=== PATIENT | male | born 1950 | race Caucasian/White ===

== ENCOUNTER 2017-03-07 07:33 | Outpatient (CLI) | payer BC ==
--- NOTE | 2017-03-07 09:16 | CT ---
CT PULMONARY LUNG SCAN NONCONTRAST: Date: 03/07/17 HISTORY: Lung cancer screening. Tobacco abuse in history. FINDINGS: No focal parenchymal lung mass, infiltrate, or consolidation are apparent. There is no evidence of pl eural fluid or pneumothorax. Lack of contrast limits evaluation of the mediastinum. There is no bulky adenopathy visible. Calcific ations apparent within the coronary arteries. IMPRESSION: 1. Lung-RADS Category 1 - negative. Suggest routine screening. 2. Atherosclerosis. POS: [facility]
== END 2017-03-07 07:34 | disposition home or self-care (01) ==
LOC: CT 07:33
PROVIDERS: ATTEND Internal Medicine
DX: Z12.2 Encounter for screening for malignant neoplasm of respiratory organs (principal); I70.90 Unspecified atherosclerosis; Z87.891 Personal history of nicotine dependence
CPT/HCPCS: G0297

== ENCOUNTER 2017-07-15 15:08 | Emergency (ER) | payer OTHER ==
--- NOTE | 2017-07-15 16:48 | RAD ---
FOUR VIEWS RIGHT KNEE 07/15/17 HISTORY: Right knee pain and swelling. FINDINGS: There is minimal tricompartment osteophytosis. There are calcifications seen adjacent to the medial femoral condyle which may be related to prior in jury. There is no significant joint space narrowing present. No fracture or dislocation is identified . IMPRESSION: 1. No acute osseous abnormality right knee. 2. Findings likely related to prior injury medial aspect right knee. 3. Minimal osteoarthritis. POS: [facility]
== END 2017-07-15 16:55 | disposition home or self-care (01) ==
LOC: ERS 15:08
DX: S83.521A Sprain of posterior cruciate ligament of right knee, initial encounter (principal); E78.5 Hyperlipidemia, unspecified; I10 Essential (primary) hypertension; F32.9 Major depressive disorder, single episode, unspecified; Z87.891 Personal history of nicotine dependence; X50.9XXA Other and unspecified overexertion or strenuous movements or postures, initial encounter

== ENCOUNTER 2017-11-18 07:22 | Outpatient (CLI) | payer OTHER ==
--- NOTE | 2017-11-18 09:11 | ULT ---
RIGHT UPPER QUADRANT ULTRASOUND: Date: 11/18/17 HISTORY: Abnormal liver function tests. FINDINGS: The left lobe of the liver is not satisfactorily visualized due to bowel gas. The right lobe of the l iver demonstrates homogeneous echotexture without focal mass or intrahepatic ductal dilatation. No ga llstones, gallbladder wall thickening, or pericholecystic fluid is seen. The common duct measures 2.0 mm in diameter. There is a 2.2 cm cyst in the right kidney without hydronephrosis. The visualized po rtions of the pancreas are unremarkable. No free fluid is seen in Morison's pouch. IMPRESSION: 1. No evidence of cholelithiasis. 2. Right renal cyst. POS: [facility]
== END 2017-11-18 07:23 | disposition home or self-care (01) ==
LOC: ULT 07:22
PROVIDERS: ATTEND Internal Medicine
DX: E80.6 Other disorders of bilirubin metabolism (principal); N28.1 Cyst of kidney, acquired
CPT/HCPCS: 76705

== ENCOUNTER 2018-03-09 13:22 | Outpatient (CLI) | payer OTHER ==
--- NOTE | 2018-03-09 15:41 | CT ---
CT CHEST WITHOUT CONTRAST PULMONARY LUNG SCAN: Date: 03/09/18 HISTORY: Personal history of tobacco use. COMPARISON: CT 03/07/17. FINDINGS: Lung Screen Specifics (Lung-RADS): Unchanged 3.0 mm peribronchovascular nodule right lung base, axia l image 211 of series 2. No new suspicious pulmonary nodule. Essentially Significant Incidentals (Lung-RADS Category S): Negative. Pulmonary/Other Incidentals: No mediastinal adenopathy. No pericardial effusion. Limited evaluation of the upper abdomen is unremarkable. Sternum and manubrium are normal. No acute displaced rib fracture. IMPRESSION: 1. Lung-RADS 2: Benign appearance or behavior. Recommend follow-up CT of the chest screening in 1 y ear. 2. Lung-RADS Category S: Negative. No new or urgent findings requiring additional evaluation. POS: [facility]
== END 2018-03-09 13:23 | disposition home or self-care (01) ==
LOC: CT 13:22
PROVIDERS: ATTEND Internal Medicine
DX: Z87.891 Personal history of nicotine dependence (principal)
CPT/HCPCS: G0297

== ENCOUNTER 2018-11-21 09:18 | Outpatient (CLI) | payer MEDICARE ==
[2018-11-21 10:10] LABS: Estimated GFR-MDRD - POC Greater than 90
--- NOTE | 2018-11-21 15:49 | MRI ---
MRI OF THE PROSTATE WITHOUT AND WITH CONTRAST: 11/21/18 COMPARISON: None. HISTORY: Prostate cancer. TECHNIQUE: Multiplanar and multisequence MR images were obtained in the prostate without and with IV contrast. T his exam was evaluated on the [employer] workstation. FINDINGS: There is moderate hypertrophy of the central gland consistent with BPH. A small amount of T1 signal i s seen in the peripheral gland from recent biopsy. No restricted diffusion is seen and no low signal is seen in the ADC map in the peripheral zone of the prostate, but evaluation is limited secondary to artifact from air in the rectum. In the left aspect of the central zone of the prostate, near the base, there is a gumball shaped lesi on which demonstrates low T2 signal. This measures 1.7 cm in greatest dimension. On the postcontrast images, this demonstrates gradual enhancement without significant washout. The prostate capsule appea rs intact. The seminal vesicles appear intact. The neurovascular bundles appear intact. No pelvic adenopathy was seen. No marrow signal abnormality is present. IMPRESSION: There is a lesion in the peripheral zone of the prostate that is suspicious. PI-RADS category 5 - jose y high likelihood that a clinically significant cancer is present in this location. POS: [facility]
[2018-11-21] MEDS ORDERED: Gadobenate Dimeglumine 529 MG/1 ML (20ML VIAL) ONE (15:59)
== END 2018-11-21 09:19 | disposition home or self-care (01) ==
LOC: TBSIIMAG 09:18
PROVIDERS: ATTEND Urology
DX: C61 Malignant neoplasm of prostate (principal); N42.89 Other specified disorders of prostate
CPT/HCPCS: 72197; 82565; A9577

== ENCOUNTER 2018-12-12 07:15 | Outpatient (CLI) | payer MEDICARE, OTHER ==
--- NOTE | 2018-12-12 07:50 | ULT ---
Abdominal aortic ultrasound: 12/12/2018 COMPARISON: None HISTORY: Screening examination for abdominal aortic aneurysm TECHNIQUE: Multiplanar grayscale sonographic imaging of the abdominal aorta obtained. Imaging include s color flow and spectral analysis FINDINGS: As defined by transverse dimension of greater than or equal to 3 cm, no evidence for aneury smal dilatation is seen involving the abdominal aorta. Abdominal aorta measures up to 2.8 x 2.3 cm proximally, 2.0 x 2.0 cm in the midportion, and 1.8 x 1.8 cm distally. Bilateral common iliac arterie s are patent. IMPRESSION: No sonographic evidence of aneurysmal dilatation of the abdominal aorta.
== END 2018-12-12 07:16 | disposition home or self-care (01) ==
LOC: BICULT 07:15
PROVIDERS: ATTEND Internal Medicine
DX: Z13.6 Encounter for screening for cardiovascular disorders (principal)
CPT/HCPCS: 76775

== ENCOUNTER 2018-12-14 14:33 | Outpatient (CLI) | payer MEDICARE ==
[2018-12-14 14:59] VITALS: BMI 28.3
[2018-12-14 15:30] LABS: Hemoglobin 15.4 g/dL (14.0-18.0); Mean Corpuscular HGB CONC 33.7 g/dL (32.0-36.0); Mean Corpuscular Volume 92.1 fL (78.0-98.0); Mean Platelet Volume 7.3 fL (7.4-10.4); Platelet Count 186 thou/uL (130-400); Red Blood Cell (RBC) Count 4.95 mill/uL (4.70-6.10); White Blood Cell (WBC) Count 6.1 thou/uL (4.8-10.8)
[2018-12-14 15:31] LABS: Bacteria/HPF None Seen HPF (None Seen); Bilirubin Negative (Negative); Blood, Urine Negative (Negative); Clarity Clear (Clear); Glucose, Urine (Dipstick) Normal (Negative); Leukocyte Negative Leu/uL (Negative); Nitrite Negative (Negative); Protein, Urine (Dipstick) 20 mg/dL (Neg-Trace); RBC/HPF 0-3 HPF (0-3); Squamous Epithelial 0-3 HPF (0-3); WBC/HPF 0-3 HPF (0-3)
[2018-12-14 15:36] LABS: INR-International Normal Ratio 1.1; PTT 29.6 SEC (22.9-36.1); Prothrombin Time 13.9 SEC (12.0-14.7)
[2018-12-14 15:48] LABS: Anion Gap 12 mmol/L (10-20); BUN (Urea Nitrogen) 15 mg/dL (8.4-25.7); Calc. Creatinine Clearance 102 mL/min (70-130); Calcium 9.3 mg/dL (7.8-10.44); Carbon Dioxide 27 mmol/L (23-31); Chloride 102 mmol/L (98-107); Estimated GFR-MDRD 77; Glucose 100 mg/dL (80-115); Potassium 3.8 mmol/L (3.5-5.1); Sodium 137 mmol/L (136-145)
== END 2018-12-14 14:34 | disposition home or self-care (01) ==
LOC: LABBT 14:33
PROVIDERS: ATTEND Urology
DX: Z01.818 Encounter for other preprocedural examination (principal); C61 Malignant neoplasm of prostate; N50.82 Scrotal pain; N40.1 Benign prostatic hyperplasia with lower urinary tract symptoms; E29.1 Testicular hypofunction
CPT/HCPCS: 80048; 81001; 85027; 85610; 85730; 87086; 93005; 93010

== ENCOUNTER 2018-12-21 08:18 | Day surgery (SDC) | payer MEDICARE ==
[2018-12-21] MEDS ORDERED: cefTRIAXone\\ROCEPHIN 1 GM VIAL ONE (10:13)
[2018-12-21] MEDS ORDERED: Sodium Chloride 0.9% 100 ML ONE (10:14)
[2018-12-21] MEDS ORDERED: PROPOFOL 200 MG/20 ML VIAL ONE (10:17)
[2018-12-21] MEDS ORDERED: Propofol 500 MG/50 ML VIAL ONE (12:15)
[2018-12-21] MEDS ORDERED: Midazolam HCl 2 mg/2 ml Vial ONE (12:15)
[2018-12-21] MEDS ORDERED: Fentanyl 100 MCG/2 ML VIAL ONE (12:15)
[2018-12-21] MEDS ORDERED: Acetaminophen 500 MG TAB ONE (13:56)
--- NOTE | 2018-12-21 14:49 | OP ---
DATE OF PROCEDURE: 12/21/2018 SERVICE: Urology. PREOPERATIVE DIAGNOSIS: Prostate cancer. POSTOPERATIVE DIAGNOSIS: Prostate cancer. PROCEDURE PERFORMED: MRI fusion directed biopsy. INDICATION FOR PROCEDURE: Mr. Dickson is a 68-year-old white male, who was diagnosed with Walter 3 + 3 prostate cancer in one core. His MRI demonstrated a PI-RADS 5 lesion toward the base of the bladder near the seminal vesicles. Due to concern for a possibly missed more aggressive cancer, we elected to repeat biopsies in a targeted fashion along with repeat standard 12 core biopsy in order to properly stage the patient and for future counseling. After risks and benefits were discussed, he agreed to proceed forward. DESCRIPTION OF PROCEDURE: After identification of armband and verification of consent, the patient was brought back to the operating room. He underwent total intravenous anesthesia. He was placed in the left lateral decubitus position with padding under the bottom to move it away from metal railings of the bed. The MRI fusion machine was positioned over the patient and the ultrasound probe introduced through the anal verge. Ultrasound measurements were taken of the prostate demonstrating a length of 4.57 cm, width of 5.66 cm, and a height of 3.75 cm for total volume of 72.2 cc. MRI fusion process was then carried out and once the fusion completed, targeted biopsies taken of the lesion x5 cores. A standard 12 core biopsy was done in a standard sextant fashion. The ultrasound probe was then removed. The patient was taken out of position, awakened and taken to PACU for recovery in stable condition. COMPLICATIONS: None. ESTIMATED BLOOD LOSS: Minimal. RETAINED TUBES AND DRAINS: None. SPECIMENS: Prostate biopsies x17 cores. DISPOSITION: The patient will be discharged home and follow up with me in approximately 1 to 2 weeks for postop check and to go for biopsy results. Job ID: [id number] [facility]
== END 2018-12-21 14:30 | disposition home or self-care (01) ==
LOC: SDC 08:18
PROVIDERS: ATTEND Urology
PROC: 0VB03ZX Excision of Prostate, Percutaneous Approach, Diagnostic (ICD-10-PCS; principal; 2018-12-21)
DX: C61 Malignant neoplasm of prostate (principal); E29.1 Testicular hypofunction; N40.0 Benign prostatic hyperplasia without lower urinary tract symptoms; I10 Essential (primary) hypertension; E78.5 Hyperlipidemia, unspecified; F32.9 Major depressive disorder, single episode, unspecified; G47.33 Obstructive sleep apnea (adult) (pediatric); Z79.899 Other long term (current) drug therapy
CPT/HCPCS: 88305; J0696; J2250; J2704; J3010; J3490

== ENCOUNTER 2019-02-06 10:02 | Outpatient (CLI) | payer MEDICARE, OTHER ==
--- NOTE | 2019-02-06 14:02 | NM ---
NUCLEAR MEDICINE BONE SCAN WHOLE BODY: (Skeletal scintigraphy) DATE: 02/06/2019 HISTORY: 68-year-old male with prostate cancer. TECHNIQUE: IV injection of technetium 99m-MDP: 32.5 mCi 3 hour delayed whole body skeletal scintigraphy in anterior and posterior views. FINDINGS: There are no foci of asymmetrically increased uptake that are particularly suspicious for bone metast ases. There is increased uptake in the bilateral knees. Photopenic defect at the left medial compartment whyte ggestive of arthroplasty. IMPRESSION: 1. No compelling evidence of skeletal metastasis. 2. Osteoarthrosis of bilateral knees. 3. Left knee arthroplasty.
== END 2019-02-06 10:03 | disposition home or self-care (01) ==
LOC: NM 10:02
PROVIDERS: ATTEND Urology
DX: C61 Malignant neoplasm of prostate (principal); M17.0 Bilateral primary osteoarthritis of knee; Z96.652 Presence of left artificial knee joint
CPT/HCPCS: 78306; A9503

== ENCOUNTER 2019-03-16 10:01 | Outpatient (CLI) | payer MEDICARE ==
--- NOTE | 2019-03-16 11:48 | CT ---
EXAM: CT chest without contrast per low-dose cancer screening protocol HISTORY: History of smoking and nicotine dependence COMPARISON: 03/09/2018, 03/07/2017 TECHNIQUE: Multiple contiguous axial images were obtained in a CT of the chest without contrast per l ow-dose cancer screening protocol. Sagittal and coronal reformats were performed. FINDINGS: Pulmonary nodules: Calcified granuloma in the right middle lobe. Stable 3 mm nodule on image 227 of 2 90 in the right lower lobe. No new pulmonary nodules. No focal infiltrates are seen. Pleural space: No pneumothorax or pleural effusion are seen. Heart: The heart is normal in size. Calcifications in the coronary arteries. Mediastinum: No hilar or mediastinal lymphadenopathy appreciated on this limited noncontrast examinat ion. Bones: Degenerative changes. Visualized subdiaphragmatic structures: Unremarkable. IMPRESSION: Lung RADS category 2-benign. The tiny noncalcified nodule in the right lower lobe has remained stable since the exam from 2016.
== END 2019-03-16 10:02 | disposition home or self-care (01) ==
LOC: CT 10:01
PROVIDERS: ATTEND Internal Medicine
DX: R91.1 Solitary pulmonary nodule (principal); Z87.891 Personal history of nicotine dependence
CPT/HCPCS: G0297